=== PATIENT | female | born 1995 | race Caucasian/White ===

== ENCOUNTER 2016-12-01 09:10 | Outpatient (CLI) | payer OTHER ==
[2016-12-01 10:05] LABS: eGFR (African) > 60; eGFR (Non-African) > 60
== END 2016-12-01 09:11 ==
LOC: LAB 09:10
PROVIDERS: ATTEND Physician Assistant
DX: F41.9 Anxiety disorder, unspecified (principal); R63.4 Abnormal weight loss
CPT/HCPCS: 36415; 80048; 84443